=== PATIENT | female | born 1940 | race Caucasian/White ===

== ENCOUNTER → 2017-01-22 12:25 | Outpatient (CLI) | payer MEDICARE, OTHER ==
[2014-05-28 09:34] VITALS: BMI 37.4
[~2017-01-22 12:25] MED LIST: ALDACTONE25 MG PO; ASPIRIN 81 MG E81 MG PO; ATIVAN2 MG PO; BENADRYL50 MG PO; CATAPRES0.2 MG PO; CHOLESTEROL MED PO; CRESTOR10 MG PO; DEMEROL100 MG PO; FISH OIL 1,2001 CA1 PO; GEMFIBROZIL600 MG PO; HYDROCHLOROTHIA25 MG PO; LEXAPRO20 MG; LEXAPRO20 MG PO; LINZESS290 MCG PO; LIPITOR40 MG PO; LOPID600 MG PO; NEURONTIN 300300 MG PO; NORCO 10/325 TA1 TA1 PO; OMEPRAZOLE PO; SEROQUEL XR150 MG PO; SYNTHROID50 MCG PO; WELLBUTRIN PO
== END | disposition home or self-care (01) ==
LOC: D.CT 12:25
DX: M54.5 Low back pain (principal)

== ENCOUNTER 2019-07-24 07:22 | Day surgery (SDC) | payer MEDICARE, OTHER ==
[~2019-07-24] VITALS: Ht 160 cm; Wt 96.2 kg
[~2019-07-24 07:22] MED LIST changes: +LOPRESSOR25 MG PO
[2019-07-24 07:47] LABS: BASOPHILS 0.6 % (0-2); EOSINOPHILS 2.6 % (0-7); HEMATOCRIT 40.2 % (36.0-48.0); HEMOGLOBIN 13.2 g/dL (12-16); IMMATURE GRANULOCYTES 0.4 % (0-5); MCH 30.7 pg (26.0-34.0); MCHC 32.8 g/dL (31.0-37.0); MCV 93.5 fL (80.0-100.0); MEAN PLATELET VOLUME 10.6 fL (7.4-10.4); MONOCYTES 11.4 % (2-11); RDW 14.1 % (11.5-14.5); WBC 6.8 10x3/uL (4.8-10.8)
[2019-07-24 07:49] LABS: PLATELET COUNT 288 10x3/uL (130-400)
[2019-07-24 07:55] LABS: ANION GAP 12.4 mmol/L (8-16); CALCIUM 9.5 mg/dL (8.5-10.1); CARBON DIOXIDE 31.5 mmol/L (21.0-32.0); CREATININE - SERUM 0.8 mg/dL (0.6-1.3); POTASSIUM - SERUM 3.9 mmol/L (3.5-5.1)
[2019-07-24 07:58] LABS: INR 0.86 (0.85-1.17); PROTIME 11.3 SECONDS (11.6-15.0)
[2019-07-24 07:59] LABS: APTT 31.2 SECONDS (22.8-39.4)
[2019-07-24] MEDS ORDERED: COLACE100 MG PO (08:42)
[2019-07-24] MEDS ORDERED: FUROSEMIDE20 MG PO (08:43)
[2019-07-24] MEDS ORDERED: TEMAZEPAM30 MG PO (08:46)
[2019-07-24] MEDS ORDERED: OCUVITE (08:47)
[2019-07-24] MEDS ORDERED: GLUCOPHAGE500 MG PO (08:48)
[2019-07-24 09:00] VITALS: BP 155/53; Ht 160 cm; Wt 96.2 kg
--- NOTE | 2019-07-24 13:08 | NUR ---
1215 IV REMOVED AND INSTRUCTIONS GIVEN. VS STABLE
--- NOTE | 2019-07-28 14:29 | OP ---
PATIENT NAME: JASON JULES MEDICAL RECORD: [id number] :42 LOCATION:[facility] ADMISSION DATE: SURGEON: MALINDA AGUILAR MD DATE OF OPERATION: 07/24/2019 PREOPERATIVE DIAGNOSIS: Mild to moderate arthritis of the right hip. POSTOPERATIVE DIAGNOSIS: Mild to moderate arthritis of the right hip. PROCEDURE: Right hip injection under fluoroscopy. SURGEON: Malinda Aguilar MD ANESTHESIA: TIVA. INTRAOPERATIVE COMPLICATIONS: None. SUMMARY OF PATHOLOGIC FINDINGS: Consistent with the preoperative diagnosis, the patient had [id number] narrowing of the hip joint on the right side as seen on fluoroscopy. OPERATIVE SUMMARY IN DETAIL: After obtaining the appropriate preoperative orthopedic surgery consent as well as anesthetic consultation, evaluation, and clearance, the patient was brought to the operating room and placed on the operating table in a supine position. After general TIVA anesthesia was administered, right hip was prepped and draped in sterile fashion. An 18-gauge spinal needle was then advanced into the hip. Small amount of Isovue was utilized to be sure that the needle tip was in the hip joint itself and then a mixture of 80 mg of Depo-Medrol and 7 cc of 0.5% Marcaine with epinephrine were placed in the hip. Needle tip was withdrawn. Bandage was applied. The patient was awakened and taken back to outpatient in stable condition. TRANSINT:[id number] Voice Confirmation ID: [id number] DOCUMENT ID: [id number] MALINDA AGUILAR MD at 1429 CC: [id number] DICTATION DATE: 07/28/19 1031 INTERNAL CONTROL SPECIALIST: 07/28/19 1101 DEP SDC 07/24/[address] [id number]
== END 2019-07-24 12:50 | disposition home or self-care (01) ==
LOC: D.OPS 07:22 → D.PAN 16:30
PROVIDERS: Anesthesiology; ATTEND Orthopaedic Surgery
DX: M13.851 Other specified arthritis, right hip (principal); M25.551 Pain in right hip

== ENCOUNTER → 2019-08-22 14:32 | Outpatient (CLI) | payer MEDICARE, OTHER ==
[2019-07-24 09:00] VITALS: BMI 37.6
[~2019-08-22 14:32] MED LIST changes: +COLACE100 MG PO; +FUROSEMIDE20 MG PO; +GLUCOPHAGE500 MG PO; +OCUVITE; +TEMAZEPAM30 MG PO
== END | disposition home or self-care (01) ==
LOC: D.MRI 14:32
PROVIDERS: ATTEND Clinical Nurse Specialist Family Health
DX: M25.551 Pain in right hip (principal)